=== PATIENT | female | born 1995 | race Caucasian/White ===

== ENCOUNTER 2025-06-23 15:56 | Outpatient (CLI) | payer OTHER, SELFPAY | END 2025-06-23 15:57 | disposition home or self-care (01) | PROVIDERS: PCP Family Medicine; Visit Provider Family Medicine | DX: E78.5 Hyperlipidemia, unspecified (principal); R53.83 Other fatigue; Z13.9 Encounter for screening, unspecified | CPT/HCPCS: 80053; 80061; 84443 ==